=== PATIENT | male | born 1985 | race African-American/Black ===

== ENCOUNTER 2020-07-27 15:51 | Emergency (ER) | payer OTHER ==
[~2020-07-27] VITALS: Ht 198.1 cm; Wt 137.0 kg
[2020-07-27 15:57] VITALS: BP 142/100
[2020-07-27] MEDS ORDERED: TETANUS, DIPHTHERIA, PERTUSSIS VAC/PF 0.5ML (>7YR OLD) IM ONE (17:15)
[2020-07-27] MEDS ORDERED: BACITRACIN ZINC OINT UDPKT TOP ONE (17:15)
[2020-07-27] MEDS ORDERED: SODIUM CHLORIDE 0.9% 1,000 ML IV ONE (17:15)
[2020-07-27 17:55] LABS: BASOPHILS % 0.9 % (0.0-2.0); EOSINOPHILS % 0.5 % (0.0-5.0); HEMOGLOBIN. 14.1 g/dL (14.0-18.0); LYMPHOCYTES % 23.3 % (20.0-50.0); MEAN CORPUSCULAR HEMOGLOBIN 30.4 pg (28.0-32.0); MEAN CORPUSCULAR VOLUME 88.6 fL (80.0-94.0); MEAN PLATELET VOLUME 7.5 fl (7.4-10.4); MONOCYTES % 6.6 % (2.0-8.0); NEUTROPHILS % 68.7 % (40.0-76.0); PLATELET 257 x1000/uL (130-400); RED BLOOD CELL COUNT 4.62 mill/uL (4.7-6.1); RED CELL DISTRIBUTION WIDTH 14.7 % (11.6-14.6)
[2020-07-27 18:01] LABS: CHLORIDE 110 mEq/L (98-107)
[2020-07-27 18:03] LABS: PARTIAL THROMBOPLASTIN TIME 28.2 sec (23.4-31.0); PROTHROMBIN TIME 10.6 sec (9.6-11.0)
[2020-07-27 18:11] LABS: CLARITY URINE CLEAR (CLEAR); COLOR URINE DARK YELLOW (YELLOW); KETONES URINE TRACE (NEGATIVE); LEUKOCYTE ESTERASE URINE TRACE (NEGATIVE); NITRITE URINE NEGATIVE (NEGATIVE); OCCULT BLOOD URINE NEGATIVE (NEGATIVE); PH URINE 5.5 (4.5-8.0); PROTEIN URINE 2+ (NEGATIVE); SPECIFIC GRAVITY URINE 1.034 (1.005-1.030)
[2020-07-27 18:37] LABS: *AMPHETAMINES SCREEN URINE NEGATIVE (NEGATIVE); *BARBITURATES SCREEN URINE NEGATIVE (NEGATIVE); *BENZODIAZEPINES SCREEN URINE NEGATIVE (NEGATIVE); *COCAINE SCREEN URINE NEGATIVE (NEGATIVE); METHADONE URINE SCREEN NEGATIVE (NEGATIVE); OPIATES URINE SCREEN NEGATIVE (NEGATIVE)
[2020-07-27 18:38] LABS: CANNABINOID URINE SCREEN PRESUMTIVE POSITIVE (NEGATIVE); PHENCYCLIDINE URINE SCREEN NEGATIVE (NEGATIVE)
[2020-07-27] MEDS ORDERED: IBUPROFEN 600MG TABLET PO ONE (20:15)
[2020-07-27] MEDS ORDERED: IBUP-2029 MT (20:16)
[2020-07-27] MEDS ORDERED: IOHEXOL-300 100 ML BOTTLE ONE (21:13)
== END 2020-07-27 20:45 | disposition home or self-care (01) ==
LOC: ER 15:51
DX: S06.0X9A Concussion with loss of consciousness of unspecified duration, initial encounter (principal); S13.4XXA Sprain of ligaments of cervical spine, initial encounter; S80.212A Abrasion, left knee, initial encounter; S30.1XXA Contusion of abdominal wall, initial encounter; R03.0 Elevated blood-pressure reading, without diagnosis of hypertension; F12.10 Cannabis abuse, uncomplicated; Z87.828 Personal history of other (healed) physical injury and trauma; V43.52XA Car driver injured in collision with other type car in traffic accident, initial encounter; Y93.89 Activity, other specified; Y92.488 Other paved roadways as the place of occurrence of the external cause
CPT/HCPCS: 36415; 70450; 71045; 73562; 74177; 80053; 80305; 81003; 83690; 85025; 85610; 85730; 86850; 86900; 86901; 90715; 96360; 96361; 99285; J7030; Q9967; Z7610